=== PATIENT | female | born 2000 | race Caucasian/White ===

== ENCOUNTER 2019-07-09 10:13 | Emergency (ER) | payer BC, OTHER ==
--- NOTE | 2019-07-09 10:22 | ED ---
Syncope/Near Syncope - HPI Summary HPI Summary: This patient is a 19 year old female brought in by EMS presenting to [facility] with a chief complaint of syncope. She states she was not feeling well since she woke up and had the syncopal episode. Patient is shivering in the room. The patient reports one episode of nausea and vomiting just after the syncopal episode. She reports fatigue. She states her LNMP started today. EMS states she was hypotensive en route. She reports mild abdominal pain after passing out. She denies CP, SOB, and rash. Blood pressure in the room is 122/62. - History Of Current Complaint Time Seen by Provider: 07/09/19 10:17 Hx Obtained From: Patient Onset/Duration: Sudden Onset Context: Witnessed Alleviating Factor(s): Spontaneous Resolution - Allergies/Home Medications Allergies/Adverse Reactions: Allergies Allergy/AdvReac Type Severity Reaction Status Date / Time No Known Allergies Allergy Verified 07/09/19 10:27 Home Medications: Home Medications FLUoxetine CAP* [PROzac CAP*] 40 mg PO DAILY 07/09/19 [History Confirmed ] LORazepam TAB(*) [Ativan 0.5 MG TAB (*)] 0.5 - 1 mg PO BEDTIME PRN 07/09/19 [ History Confirmed 07/09/19] Loratadine/Pseudoephedrine [Allergy Congestion Relief Tab] 1 each PO DAILY PRN 07/09/19 [History Confirmed 07/09/19] busPIRone TAB* [Buspar TAB*] 5 mg PO BID 07/09/19 [History Confirmed 07/09/19] PMH/Surg Hx/FS Hx/Imm Hx Endocrine/Hematology History: Denies: Hx Diabetes Cardiovascular History: Denies: Hx Hypertension, Hx Pacemaker/ICD History: Denies: Hx Renal Disease Sensory History: Denies: Hx Hearing Aid Psychiatric History: Denies: Hx Panic Disorder - Surgical History Surgery Procedure, Year, and Place: TONSILS - Family History Known Family History: Negative: Cardiac Disease, Hypertension, Diabetes, Respiratory Disease - Social History Occupation: Student Alcohol Use: Occasionally Hx Substance Use: No Substance Use Type: Reports: None Hx Tobacco Use: No Review of Systems Positive: Chills Negative: Chest Pain Negative: Shortness Of Breath Positive: Abdominal Pain, Vomiting, Nausea Negative: Rash Positive: Syncope All Other Systems Reviewed And Are Negative: Yes Physical Exam - Summary Physical Exam Summary: VITAL SIGNS: Reviewed. GENERAL: Patient is a well-developed and nourished FEMALE who is lying comfortable in the stretcher. Patient is not in any acute respiratory distress. HEAD AND FACE: No signs of trauma. No ecchymosis, hematomas or skull depressions. No sinus tenderness. EYES: PERRLA, EOMI x 2, No injected conjunctiva, no nystagmus. EARS: Hearing grossly intact. Ear canals and tympanic membranes are within normal limits. MOUTH: Oropharynx within normal limits. NECK: Supple, trachea is midline, no adenopathy, no JVD, no carotid bruit, no c- spine tenderness, neck with full ROM. CHEST: Symmetric, no tenderness at palpation. LUNGS: Clear to auscultation bilaterally. No wheezing or crackles. CVS: Regular rate and rhythm, S1 and S2 present, no murmurs or gallops appreciated. ABDOMEN: Soft, non-tender. No signs of distention. No rebound, no guarding, and no masses palpated. Bowel sounds are normal. EXTREMITIES: FROM in all major joints, no edema, no cyanosis or clubbing. NEURO: Alert and oriented x 3. No acute neurological deficits. Speech is normal and follows commands. SKIN: Dry and warm. Triage Information Reviewed: Yes Vital Signs On Initial Exam: Temp Pulse Resp BP Pulse Ox 9.2 F 67 16 118/78 97 07/09/19 10:21 07/09/19 10:21 07/09/19 10:21 07/09/19 10:21 07/09/19 10:21 Vital Signs Reviewed: Yes Diagnostics - Laboratory Result Diagrams: 07/09/19 10:53 07/09/19 10:53 Lab Statement: Any lab studies that have been ordered have been reviewed, and results considered in the medical decision making process. - Radiology CXR Radiology Interpretation Completed By: Radiologist Summary of Radiographic Findings: No active cardiopulmonary disease. ED Provider has reviewed this report. - EKG 1035 Cardiac Rate: NL - 61 BPM EKG Rhythm: Sinus Rhythm Summary of EKG Findings: No ST elevations. Normal axis. ED Physician has reviewed and interpreted this EKG. Re-Evaluation - Re-Evaluation First Eval Re-Evaluation Time: 12:33 Comment: She states that she had abdominal cramping just prior to her syncopal episode. Course/Dx Course Of Treatment: This patient is a 19-year-old female who presents to the emergency department via ambulance with chief complaint of having a syncopal episode and becoming hypotensive. Patient reports one episode of nausea vomiting , and reports slightly lower abdominal pain. The patient started her menstrual cycle today. She was no other complaints. Initially the patient was placed on a surveillance system monitor, IV fluids are started and blood work ordered. EKG showed Sinus rhythm at 61 bpm there is no ST elevations, no delta waves. Chest x-ray impression no acute cardiopulmonary disease. Workup without any significant abnormality, except for glucose of 101, calcium is 8.2, platelets was 1.7 and total protein 6. Urinalysis negative for UTI, d-dimer is less than 200 which is negative. Influenza A and B is negative. In the ED course the patients blood pressure has been normal. Patient remembered that before she had the syncopal episode she was having pelvic cramping due her menstrual period. Patient was observed in the ED for a couple hours and she has no complaints. Her BP is stable, no arrhythmias, no URRUTIA, no abnormal findings. I believe patient had a vasovagal syncope secondary to pain. At this point I discussed all the findings and test results with the patient. She was instructed to return to the emergency room immediately if any of the symptoms return or worsen. Patient understands and agrees. Neurological exam before discharge: Patient is alert and oriented x 3. No acute neurological deficits. Patient's vital signs are stable. Patient is to follow up with her PCP in the next 2 3 days. She understands and agrees. Plan of care was discussed with the patient and patient understands and agrees with the plan of care. All questions were answered to the patient's satisfaction. There were no further complaints or concerns. - Diagnoses Differential Diagnosis/HQI/PQRI: Positive: Dysrhythmia, GI Bleed, Hypovolemia, Metabolic Reaction, Myocardial Infarction, Vasovagal Episode Provider Diagnoses: Vasovagal syncope Discharge ED - Sign-Out/Discharge Documenting (check all that apply): Patient Departure - Discharge Patient Received Moderate/Deep Sedation with Procedure: No - Discharge Plan Condition: Stable Disposition: HOME Patient Education Materials: Syncope (ED) Referrals: [facility] - Alejandro NORIEGA [Primary Care Provider] - Additional Instructions: Return to ED with new or worsening symptoms. - Billing Disposition and Condition Condition: STABLE Disposition: Home - Attestation Statements Document Initiated by Scribe: Yes Documenting Scribe: Emanuel Merrill Provider For Whom Paresh is Documenting (Include Credential): Judd Aguirre MD Scribe Attestation: Emanuel Ghotra, scribed for Judd Aguirre MD on 07/09/19 at 2152. Scribe Documentation Reviewed: Yes Provider Attestation: The documentation as recorded by the Emanuel hearn accurately reflects the service I personally performed and the decisions made by me, Judd Aguirre MD Status of Scribe Document: Viewed
[2019-07-09] MEDS ORDERED: NS 0.9% 1000 ML** 1,000 ML IV ONE (10:28)
[2019-07-09 11:07] LABS: ABS Lymphocytes 1.3 10^3/ul (1.0-4.8); ABS Monocytes 0.7 10^3/ul (0-0.8); ABS Neutrophils 8.8 10^3/ul (1.5-7.7); Eosinophil % 0.3 %; Hematocrit 40 % (35-47); Hemoglobin 13.2 g/dL (12.0-16.0); Lymphocyte % 11.6 %; Mean Corpuscular HGB Conc 33 g/dL (31-36); Mean Corpuscular Hemoglobin 29 pg (27-31); Mean Corpuscular Volume 87 fL (80-97); Mean Platelet Volume 7.7 fL (7.4-10.4); Platelet Count 221 10^3/uL (150-450); Red Blood Count 4.55 10^6 /uL (3.70-4.87); Red Cell Distribution Width 14 % (10-15); White Blood Count 10.8 10^3/uL (3.5-10.8)
[2019-07-09 11:27] LABS: ALT 12 U/L (7-52); AST 13 U/L (13-39); Albumin 3.7 g/dL (3.2-5.2); Albumin/Globulin Ratio 1.6 (1-3); Alkaline Phosphatase 41 U/L (34-104); Anion Gap 6 mmol/L (2-11); BUN/Creatinine Ratio 13.5 (8-20); Blood Urea Nitrogen 10 mg/dL (6-24); CO2 Carbon Dioxide 25 mmol/L (22-32); Calcium 8.2 mg/dL (8.6-10.3); Chloride 109 mmol/L (101-111); Creatine Kinase 45 U/L (10-223); EGFR African American 119.9 (>60); EGFR Non-African American 99.1 (>60); Globulin 2.3 g/dL (2-4); Glucose 101 mg/dL (70-100); Magnesium 1.7 mg/dL (1.9-2.7); Potassium 4.3 mmol/L (3.5-5.0); Sodium 140 mmol/L (135-145)
[2019-07-09 11:37] LABS: Influenza A Molecular NEGATIVE (Negative); Influenza B Molecular NEGATIVE (Negative)
[2019-07-09 12:02] LABS: Urine Appearance Cloudy; Urine Bilirubin Negative (Negative); Urine Blood Negative (Negative); Urine Color Yellow; Urine Glucose Negative (Negative); Urine Ketones Trace (Negative); Urine Nitrite Negative (Negative); Urine Protein Negative (Negative); Urine Specific Gravity 1.019 (1.010-1.030); Urine Urobilinogen Negative (Negative)
[2019-07-09] MEDS ORDERED: Ketorolac INJ* 30 MG/ML 1 ML VIAL IV PUSH ONE (12:33)
[2019-07-09] MEDS ORDERED: Ondansetron INJ* 2 MG/ML VIAL IV ONE (12:33)
[2019-07-09 12:42] LABS: Alcohol < 10 mg/dL (<10)
[2019-07-09 12:54] LABS: Urine Benzodiazepine Screen None Detected (None Detect); Urine Opiates Screen None Detected (None Detect)
[2019-07-09 13:43] VITALS: BP 115/52
== END 2019-07-09 13:35 | disposition home or self-care (01) ==
LOC: ED 10:13
DX: R55 Syncope and collapse (principal); R11.2 Nausea with vomiting, unspecified; R53.83 Other fatigue; R10.30 Lower abdominal pain, unspecified
CPT/HCPCS: 36415; 71046; 80053; 80307; 80320; 81003; 82550; 83605; 83735; 83880; 84443; 84484; 85025; 85379; 93005; 96361; 96374; 96375; 99283; G0480; J1885; J2405